=== PATIENT | male | born 1970 | race Caucasian/White ===

== ENCOUNTER 2021-10-07 19:12 | Emergency (ER) | payer OTHER ==
[~2021-10-07] VITALS: Ht 182.9 cm; Wt 106.6 kg
[2021-10-07] MEDS ORDERED: NORVASC10 MG PO (19:36)
[2021-10-07] MEDS ORDERED: TOPROL XL25 MG PO (19:36)
[2021-10-07] MEDS ORDERED: SPIRONOLACTONE50 MG PO (19:36)
[2021-10-07] MEDS ORDERED: PREDNISONE50 MG PO (20:52)
[2021-10-07] MEDS ORDERED: PROAIR HFA8.5 GM INH (20:52)
[2021-10-07 21:47] VITALS: BP 118/77
--- NOTE | 2021-10-08 11:40 | EKG ---
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: [place] : 1970 Requested By: Violet An Order Number: [id number] MD: Froilan Vega Measurements Intervals [place] Rate: 66 P: 21 HI: 178 QRS: -51 QRSD: 105 T: 76 QT: 429 QTc: 450 Interpretive Statements Sinus rhythm Possible left atrial enlargement Incomplete RBBB and LAFB Baseline wander in lead(s) V3 No previous ECG available for comparison Electronically Signed On 10-08-2021 11:40:24 CLAIMS ADMINISTRATOR by Froilan Vega [email or web address] <ELECTRONICALLY SIGNED> By: Froilan Vega MD, FACC 10/08/21 1140 25 25 Froilan Vega MD, FAC /EPI
== END 2021-10-07 21:48 | disposition home or self-care (01) ==
LOC: M.ERS 19:12
DX: U07.1 COVID-19 (principal); J12.82 Pneumonia due to coronavirus disease 2019; I10 Essential (primary) hypertension; Z86.73 Personal history of transient ischemic attack (TIA), and cerebral infarction without residual deficits; Z79.899 Other long term (current) drug therapy